=== PATIENT | male | born 1985 | race Caucasian/White ===

== ENCOUNTER 2016-11-05 16:09 | Emergency (ER) | payer OTHER ==
[2016-11-05 17:27] VITALS: BP 136/73
--- NOTE | 2016-11-05 21:41 | UC ---
Back Pain HPI - HPI Summary HPI Summary: PT WITH A H/O KIDNEY STONE P/W LOW BACK PAIN THAT STARTED THIS MORNING AT 8AM. PT ALSO NOTES DECREASED URINARY OUTPUT BUT, HAS NOT HAD ANYTHING TO DRINK TODAY BESIDES SODA(MONSTERS) AND CAFFEINATED TEA. PAIN IMPROVED SINCE THIS MORNING AFTER STRETCHING. PT DID HAVE AN INCIDENT 2 DAYS AGO WHEREIN HE SLIPPED WHILE WALKING ON ICE, DID NOT GO TO GROUND. - History of Current Complaint Chief Complaint: UCGU Stated Complaint: URINARY COMPLAINT-POSSIBLE STONE Time Seen by Provider: 11/05/16 17:02 Hx Obtained From: Patient, Family/Frickertron Checker Onset/Duration: Sudden Onset, Lasting Hours Timing: Constant Severity Initially: Moderate Severity Currently: Moderate Pain Intensity: 5 Pain Scale Used: 0-10 Numeric Back Pain: Is Discrete @ - LOW LEFT BACK Character: Dull, Aching, Throbbing Aggravating: Nothing Alleviating: Nothing - STRETCHING Associated Signs And Symptoms: Negative: Swelling, Redness, Bruising, Fever, Weakness, Numbness, Tingling, Abdominal Pain, Flank Pain, Bladder Incontinence, Bowel Incontinence, Pain with Weight Bearing - Risk Factors Cauda Equina Risk Factors: Negative - Allergies/Home Medications Allergies/Adverse Reactions: Allergies Allergy/AdvReac Type Severity Reaction Status Date / Time No Known Allergies Allergy Verified 11/05/16 17:27 Home Medications: Home Medications Pain And Muscle Reliever-Naproxen? 2 tab PO ONCE PRN 11/05/16 [History Confirmed 11/05/16] PMH/Surg Hx/FS Hx/Imm Hx Cardiovascular History Of: Reports: Cardiac Disorders - MVP - Surgical History Surgical History: Yes Surgery Procedure, Year, and Place: fracture right hand. stent place in L uterer, then removed. tonsillectomy - Family History Known Family History: Positive: Hypertension Negative: Cardiac Disease, Diabetes - Social History Occupation: Employed Full-time Lives: With Family Alcohol Use: Occasionally Substance Use Type: None Smoking Status (MU): Former Smoker Type: Cigarettes Amount Used/How Often: occ usage Review of Systems Constitutional: Negative Skin: Negative Eyes: Negative ENT: Negative Respiratory: Negative Cardiovascular: Negative Gastrointestinal: Negative Genitourinary: Other - DECREASED URINE OUTPUT Motor: Negative Neurovascular: Negative Musculoskeletal: Myalgia Neurological: Negative Psychological: Negative All Other Systems Reviewed And Are Negative: Yes Physical Exam Triage Information Reviewed: Yes Appearance: Well-Appearing, No Pain Distress, Well-Nourished Vital Signs: Initial Vital Signs Temp 98.3 F 11/05/16 17:22 Pulse 73 11/05/16 17:22 Resp 18 11/05/16 17:22 BP 136/73 11/05/16 17:22 Vital Signs Reviewed: Yes Eyes: Positive: Conjunctiva Clear. Negative: Discharge ENT: Positive: Hearing grossly normal. Negative: Muffled/hoarse voice Neck: Positive: Supple, Nontender Respiratory: Positive: Lungs clear, Normal breath sounds, No respiratory distress, No accessory muscle use Cardiovascular: Positive: RRR, No Murmur Abdomen Description: Positive: Nontender, Soft. Negative: CVA Tenderness (R), CVA Tenderness (L), Distended, Guarding, McBurney's Point Tenderness Bowel Sounds: Positive: Present Musculoskeletal Exam: Normal Neurological: Positive: Alert, Muscle Tone Normal Psychological: Positive: Age Appropriate Behavior Skin Exam: Normal Back Pain Course/Dx - Differential Dx/Diagnosis Differential Diagnosis/HQI/PQRI: Renal Colic, Strain, Sprain Provider Diagnoses: LOW BACK STRAIN Discharge - Discharge Plan Condition: Stable Disposition: HOME Patient Education Materials: Low Back Strain (ED), Lower Back Exercises (ED) Referrals: No Primary Care Phys,NOPCP [Primary Care Provider] - Additional Instructions: RIGHT NOW THERE IS NO BLOOD IN YOUR URINE. SO THERE THE LIKELIHOOD OF A KIDNEY STONE IS MINISCULE. IF HOWEVER, YOU DEVELOP INCREASED PAIN, PAIN WITH URINATION , FEVER, BLOOD IN YOUR URINE OR YOU ARE HAVING TROUBLE URINATING, YOU SHOULD RETURN HERE OR GO TO THE ED IMMEDIATELY. DRINK MORE WATER. CUT DOWN ON SODA. REMEMBER - LISTEN TO HER, SHE IS MOST CERTAINLY RIGHT. FOLLOW-UP CARE: You should establish with a private physician for follow-up care. If you are unable to get a timely appointment, or if you are worsening, call us or return for re-evaluation. An additional resource available to assist in finding the appropriate physician for your health care needs is the Physician Referral Center. You may contact them by calling [phone]. IF YOUR BACK PAIN DOES NOT CLEAR UP READILY, YOU MAY WANT TO REQUEST PHYSICAL THERAPY. AND YOU WOULD LIKELY BENEFIT FROM OSTEOPATHIC MANIPULATION. WE RECOMMEND THAT YOU FIND AN OSTEOPATHIC PHYSICIAN IN YOUR AREA WHO DOES LYMPHATIC, MYOFACIAL AND VISCERAL WORK
== END 2016-11-05 18:32 | disposition home or self-care (01) ==
LOC: UCCORT 16:09
DX: S39.012A Strain of muscle, fascia and tendon of lower back, initial encounter (principal); X58.XXXA Exposure to other specified factors, initial encounter; Y92.9 Unspecified place or not applicable; R39.9 Unspecified symptoms and signs involving the genitourinary system; Z87.442 Personal history of urinary calculi; Z87.891 Personal history of nicotine dependence
CPT/HCPCS: 87086; 99211; G0463

== ENCOUNTER 2017-02-20 19:37 | Emergency (ER) | payer OTHER ==
[2017-02-20 20:55] VITALS: BP 128/78
[2017-02-20] MEDS ORDERED: Penicillin VK TAB* 250 MG PO ONE (21:24)
[2017-02-20] MEDS ORDERED: HYDROcodone/ACETAMIN 5-325 MG* 1 TAB PO ONE (21:25)
--- NOTE | 2017-02-20 21:34 | UC ---
Dental HPI - HPI Summary HPI Summary: Patient awaiting a route canal, developed 2 abscesses on the left side of jaw. maxillary sinus pressure on the left patient has been taking ibuprofen round the clock - History of Current Complaint Chief Complaint: UCDentalProblem Stated Complaint: ORAL COMPLAINT Time Seen by Provider: 02/20/17 21:11 Hx Obtained From: Patient Onset/Duration: Sudden Onset, Lasting Days Severity: Moderate Related History: Previous Dental Care on Same Tooth, Swelling - Allergies/Home Medications Allergies/Adverse Reactions: Allergies Allergy/AdvReac Type Severity Reaction Status Date / Time No Known Allergies Allergy Verified 02/20/17 20:48 Home Medications: Home Medications Acetaminophen TAB* [Tylenol TAB*] 975 mg PO Q6H PRN 02/20/17 [History Confirmed 02/20/17] PMH/Surg Hx/FS Hx/Imm Hx Previously Healthy: Yes Cardiovascular History Of: Reports: Cardiac Disorders - MVP - Surgical History Surgical History: Yes Surgery Procedure, Year, and Place: fracture right hand. stent place in L [place], then removed. tonsillectomy - Family History Known Family History: Positive: Hypertension Negative: Cardiac Disease, Diabetes - Social History Alcohol Use: Weekly Substance Use Type: Marijuana Substance Use Comment - Amount & Last Used: 3 weeks ago Smoking Status (MU): Former Smoker Type: Cigarettes Amount Used/How Often: occ usage When Did the Patient Quit Smoking/Using Tobacco: 1 yr Review of Systems Constitutional: Negative Skin: Negative Eyes: Negative ENT: Dental Pain Respiratory: Negative Cardiovascular: Negative Gastrointestinal: Negative Genitourinary: Negative Motor: Negative Neurovascular: Negative Musculoskeletal: Negative Neurological: Headache Psychological: Negative All Other Systems Reviewed And Are Negative: Yes Physical Exam Triage Information Reviewed: Yes Appearance: Well-Nourished, Ill-Appearing, Pain Distress Vital Signs: Initial Vital Signs Temp 98.7 F 02/20/17 20:50 Pulse 71 02/20/17 20:50 Resp 16 02/20/17 20:50 BP 128/78 02/20/17 20:50 Pulse Ox 99 02/20/17 20:50 Vital Signs Reviewed: Yes Eye Exam: Normal Eyes: Positive: Conjunctiva Clear ENT Exam: Normal ENT: Positive: Pharyngeal erythema, TMs normal Dental Exam: Normal Neck exam: Normal Neck: Positive: Supple, Nontender, Enlarged Nodes @ - left cervical and subandibular Respiratory Exam: Normal Respiratory: Positive: Chest non-tender, Lungs clear, Normal breath sounds Cardiovascular Exam: Normal Cardiovascular: Positive: RRR, No Murmur, Pulses Normal Abdominal Exam: Normal Abdomen Description: Positive: Nontender, No Organomegaly, Soft Bowel Sounds: Positive: Present Musculoskeletal Exam: Normal Musculoskeletal: Positive: Strength Intact, ROM Intact, No Edema Neurological Exam: Normal Neurological: Positive: Alert Psychological Exam: Normal Skin Exam: Normal Dental Complaint Course/Dx - Course Course Of Treatment: hx obtained, exam performed, meds reviewed, treaed for 2 dental abcesses on left side of jaw. - Differential Dx/Diagnosis Differential Diagnosis/Dx: Dental Abscess, Dental Caries, Peridontic Disease, Tonsillitis Provider Diagnoses: dental abscess x2. dental caries. left maxillary sinus pressure Discharge - Discharge Plan Condition: Stable Disposition: HOME Prescriptions: HYDROcodone/ACETAMIN 5-325 MG* [[place] 5-325 TAB*] 1 tab PO Q6H PRN #8 tab MDD 4 tabs PRN Reason: Pain Penicillin VK TAB 500 MG(NF) [Penicillin VK 500 mg Tab(NF)] 500 mg PO QID #40 tab Patient Education Materials: Dental Abscess (ED) Referrals: JOYCE Eller [Primary Care Provider] - Additional Instructions: 1 take the medication as prescribed 2. follow up with your dentist for follow up treatment.
== END 2017-02-20 21:40 | disposition home or self-care (01) ==
LOC: UCCORT 19:37
DX: K04.7 Periapical abscess without sinus (principal); K02.9 Dental caries, unspecified; J32.0 Chronic maxillary sinusitis; R51 Headache; Z87.891 Personal history of nicotine dependence; I34.1 Nonrheumatic mitral (valve) prolapse
CPT/HCPCS: 99212; A9270-GY; G0463

== ENCOUNTER 2017-07-11 10:09 | Emergency (ER) | payer OTHER ==
[2017-07-11 10:33] VITALS: BP 133/66
--- NOTE | 2017-07-11 10:46 | UC ---
Throat Pain/Nasal Brda HPI - HPI Summary HPI Summary: patient has had sinus issues for the past week, on and off chills, threw up after large coughing fit this morning that ended up vomiting. - History of Current Complaint Chief Complaint: UCRespiratory Stated Complaint: VOMITING,SINUS Time Seen by Provider: 07/11/17 10:34 Hx Obtained From: Patient Hx From Patient Unobtainable Due To: Dementia Onset/Duration: Sudden Onset, Lasting Days Severity: Moderate Cough: Productive Associated Signs & Symptoms: Positive: Dysphagia, Wheezing, Sinus Discomfort, Nasal Discharge - Allergies/Home Medications Allergies/Adverse Reactions: Allergies Allergy/AdvReac Type Severity Reaction Status Date / Time No Known Allergies Allergy Verified 07/11/17 10:33 Home Medications: Home Medications Bismuth Subsalicylate [Pepto-Bismol Max Strength] 525 mg PO ONCE 07/11/17 [ History Confirmed 07/11/17] Nmqjmfbyfjeuz-Jususqgnkbc-Ac [Theraflu Cold & Cough] 1 yoan PO ONCE 07/11/17 [ History Confirmed 07/11/17] Pseudoephedrine HCL ER TAB* [Sudafed 12 Hour*] 120 mg PO BID 07/11/17 [History Confirmed 07/11/17] PMH/Surg Hx/FS Hx/Imm Hx Previously Healthy: Yes - Surgical History Surgical History: Yes Surgery Procedure, Year, and Place: fracture right hand. stent place in L [place], then removed. tonsillectomy - Family History Known Family History: Positive: Hypertension Negative: Cardiac Disease, Diabetes - Social History Alcohol Use: Occasionally Substance Use Type: Marijuana Substance Use Comment - Amount & Last Used: 1 week ago Smoking Status (MU): Former Smoker Type: Cigarettes Amount Used/How Often: occ usage When Did the Patient Quit Smoking/Using Tobacco: 1.5 - Immunization History Most Recent Influenza Vaccination: no Review of Systems Constitutional: Chills, Fatigue Skin: Negative Eyes: Negative ENT: Sore Throat, Ear Ache, Nasal Discharge, Sinus Congestion, Sinus Pain/ Tenderness Respiratory: Cough Cardiovascular: Negative Gastrointestinal: Negative Genitourinary: Negative Motor: Negative Neurovascular: Negative Musculoskeletal: Negative Neurological: Headache Psychological: Negative Is Patient Immunocompromised?: No All Other Systems Reviewed And Are Negative: Yes Physical Exam Triage Information Reviewed: Yes Appearance: Well-Nourished, Ill-Appearing, Pain Distress Vital Signs: Initial Vital Signs Temp 98.8 F 07/11/17 10:28 Pulse 68 07/11/17 10:28 Resp 18 07/11/17 10:28 BP 133/66 07/11/17 10:28 Pulse Ox 98 07/11/17 10:28 Vital Signs Reviewed: Yes Eye Exam: Normal ENT: Positive: Pharynx normal, Pharyngeal erythema, TMs normal Dental Exam: Normal Neck exam: Normal Respiratory Exam: Normal Cardiovascular Exam: Normal Cardiovascular: Positive: RRR, No Murmur, Pulses Normal Abdominal Exam: Normal Abdomen Description: Positive: Nontender, No Organomegaly, Soft Bowel Sounds: Positive: Present Musculoskeletal Exam: Normal Musculoskeletal: Positive: Strength Intact, ROM Intact, No Edema Neurological Exam: Normal Neurological: Positive: Alert, Muscle Tone Normal Psychological Exam: Normal Skin Exam: Normal Throat Pain/Nasal Course/Dx - Course Course Of Treatment: hx obtained, exam performed ,meds reviewed, treated for sinusitis and wheezing - Differential Dx/Diagnosis Differential Diagnosis/HQI/PQRI: Pharyngitis, Sinusitis, URI Provider Diagnoses: sinusitis. bronchospasm Discharge - Discharge Plan Condition: Stable Disposition: HOME Prescriptions: Albuterol HFA INHALER* [Ventolin HFA Inhaler*] 2 puff INH Q4H PRN #1 mdi PRN Reason: Cough Azithromyxin YOAN (NF) [Z-Yoan (Zithromax) 250 mg tabs #6] 2 tab PO .TODAY, THEN 1 DAILY #6 tab predniSONE TAB* [Deltasone TAB*] 40 mg PO DAILY #14 tab Patient Education Materials: Sinusitis (ED) Referrals: JOYCE Eller [Primary Care Provider] - Additional Instructions: 1. take the medication as prescribe.d 2. Increase fluid intake and get plenty of rest. 3. Follow up as needed if symptoms are not improving.
== END 2017-07-11 10:50 | disposition home or self-care (01) ==
LOC: UCCORT 10:09
DX: J32.9 Chronic sinusitis, unspecified (principal); J98.01 Acute bronchospasm; Z87.891 Personal history of nicotine dependence
CPT/HCPCS: 99212; G0463

== ENCOUNTER 2017-09-30 12:13 | Emergency (ER) | payer OTHER ==
[2017-09-30 14:30] VITALS: BP 135/69
--- NOTE | 2017-09-30 14:43 | UC ---
Respiratory Complaint HPI - HPI Summary HPI Summary: ONSET OF COUGH, CONGESTION, SCRATCHY THROAT AND FEVER 101 YESTERDAY. CALLED OUT OF WORK TODAY - REQUESTING A NOTE. - History of Current Complaint Chief Complaint: UCRespiratory Stated Complaint: COUGH,ST,SINUSES Time Seen by Provider: 09/30/17 14:32 Hx Obtained From: Patient Onset/Duration: Gradual Onset, Lasting Days, Still Present Timing: Constant Severity Initially: Moderate Severity Currently: Moderate Pain Intensity: 2 Pain Scale Used: 0-10 Numeric Character: Cough: Nonproductive Aggravating Factors: Nothing Alleviating Factors: Nothing Associated Signs And Symptoms: Positive: Fever, URI, Nasal Congestion - Allergies/Home Medications Allergies/Adverse Reactions: Allergies Allergy/AdvReac Type Severity Reaction Status Date / Time No Known Allergies Allergy Verified 09/30/17 14:31 PMH/Surg Hx/FS Hx/Imm Hx Previously Healthy: Yes Other Cardiovascular History: MVP - Surgical History Surgical History: Yes Surgery Procedure, Year, and Place: fracture right hand. stent place in L [place], then removed. tonsillectomy - Family History Known Family History: Positive: Hypertension Negative: Cardiac Disease, Diabetes - Social History Alcohol Use: Occasionally Substance Use Type: Marijuana Substance Use Comment - Amount & Last Used: 1 week ago Smoking Status (MU): Former Smoker Type: Cigarettes Amount Used/How Often: occ usage When Did the Patient Quit Smoking/Using Tobacco: 1.5 - Immunization History Most Recent Influenza Vaccination: no Review of Systems Constitutional: Fever, Fatigue ENT: Sore Throat, Nasal Discharge Respiratory: Cough Cardiovascular: Negative Gastrointestinal: Negative All Other Systems Reviewed And Are Negative: Yes Physical Exam Triage Information Reviewed: Yes Appearance: Well-Appearing, No Pain Distress, Well-Nourished Vital Signs: Initial Vital Signs Temp 98 F 09/30/17 14:27 Pulse 91 09/30/17 14:27 Resp 18 09/30/17 14:27 BP 135/69 09/30/17 14:27 Pulse Ox 98 09/30/17 14:27 Vital Signs Reviewed: Yes Eyes: Positive: Conjunctiva Clear ENT: Positive: Hearing grossly normal, Pharynx normal, TMs normal Neck: Positive: Supple, Nontender, No Lymphadenopathy Respiratory Exam: Normal Cardiovascular Exam: Normal Abdomen Description: Positive: Soft Musculoskeletal: Positive: No Edema Neurological: Positive: Alert Psychological: Positive: Age Appropriate Behavior Skin: Negative: rashes UC Diagnostic Evaluation - Laboratory O2 Sat by Pulse Oximetry: 98 Respiratory Course/Dx - Differential Dx/Diagnosis Provider Diagnoses: ACUTE URI Discharge - Discharge Plan Condition: Stable Disposition: HOME Patient Education Materials: Upper Respiratory Infection (ED) Forms: *Work Release Referrals: JOYCE Eller [Primary Care Provider] - 2 Weeks Additional Instructions: YOUR SYMPTOMS ARE LIKELY VIRALLY MEDIATED AND SHOULD RESOLVE ON THEIR OWN WITH TIME. REST, HYDRATE, OTC MEDS NEEDED. SEEK FOLLOW-UP IF YOU ARE NOT IMPROVING OVER THE NEXT 1-2 WEEKS.
== END 2017-09-30 14:52 | disposition home or self-care (01) ==
LOC: UCCORT 12:13
DX: J06.9 Acute upper respiratory infection, unspecified (principal); I34.1 Nonrheumatic mitral (valve) prolapse; F12.90 Cannabis use, unspecified, uncomplicated; Z72.0 Tobacco use
CPT/HCPCS: 99211; G0463

== ENCOUNTER 2018-04-11 08:50 | Emergency (ER) | payer OTHER ==
[2018-04-11 09:24] VITALS: BP 117/73
--- NOTE | 2018-04-11 09:54 | UC ---
Abdominal Pain Male HPI - HPI Summary HPI Summary: abdominal pain x 1 day + nausea and vomiting , + diarrhea no fever, no chills - History of Current Complaint Chief Complaint: UCGI Stated Complaint: DIARRHEA/VOMITING Time Seen by Provider: 04/11/18 09:28 Hx Obtained From: Patient Onset/Duration: Gradual Onset, Lasting Days - 1, Still Present Timing: Constant Severity Initially: Moderate Severity Currently: Moderate Pain Intensity: 1 Pain Scale Used: 0-10 Numeric Location: Diffuse Radiates: No Character: Cramping Aggravating Factor(s): Food Alleviating Factor(s): Rest Associated Signs And Symptoms: Positive: Nausea, Vomiting, Diarrhea. Negative: Fever, Cough, Chest Pain, Dizzy, Back Pain, Constipation, Blood in Stool, Urinary Symptoms, Decreased Appetite - Allergies/Home Medications Allergies/Adverse Reactions: Allergies Allergy/AdvReac Type Severity Reaction Status Date / Time No Known Allergies Allergy Verified 04/11/18 09:25 Home Medications: Home Medications Ibuprofen 400 mg PO DAILY PRN 04/11/18 [History Confirmed 04/11/18] PMH/Surg Hx/FS Hx/Imm Hx Previously Healthy: Yes - Surgical History Surgical History: Yes Surgery Procedure, Year, and Place: fracture right hand. stent place in L ute[place], then removed. tonsillectomy - Family History Known Family History: Positive: Hypertension Negative: Cardiac Disease, Diabetes - Social History Alcohol Use: Occasionally Substance Use Type: Marijuana Substance Use Comment - Amount & Last Used: yesterday Smoking Status (MU): Former Smoker Type: Cigarettes Amount Used/How Often: occ usage When Did the Patient Quit Smoking/Using Tobacco: 2015 - Immunization History Most Recent Influenza Vaccination: no Review of Systems Constitutional: Negative Skin: Negative Eyes: Negative ENT: Negative Respiratory: Negative Gastrointestinal: Abdominal Pain, Vomiting, Diarrhea, Nausea Is Patient Immunocompromised?: No All Other Systems Reviewed And Are Negative: Yes Physical Exam Triage Information Reviewed: Yes Appearance: Well-Appearing, No Pain Distress, Well-Nourished Vital Signs: Initial Vital Signs Temp 97.8 F 04/11/18 09:09 Pulse 65 04/11/18 09:09 Resp 16 04/11/18 09:09 BP 117/73 04/11/18 09:09 Pulse Ox 100 04/11/18 09:09 Vital Signs Reviewed: Yes Eye Exam: Normal Eyes: Positive: Conjunctiva Clear ENT: Positive: Normal ENT inspection, Hearing grossly normal, Pharynx normal Neck: Positive: Supple, Nontender, No Lymphadenopathy Respiratory: Positive: Chest non-tender, Lungs clear, Normal breath sounds Cardiovascular: Positive: RRR, No Murmur, Pulses Normal Abdomen Description: Positive: Nontender, Soft. Negative: CVA Tenderness (R), CVA Tenderness (L), Distended, Guarding Bowel Sounds: Positive: Present Abd Pain Male Course/Dx - Differential Dx/Clinical Impression Provider Diagnoses: gastroenteritis Discharge - Sign-Out/Discharge Documenting (check all that apply): Discharge/Admit/Transfer - Discharge Plan Condition: Stable Disposition: HOME Patient Education Materials: Gastroenteritis (ED) Forms: *Work Release Referrals: Non Staff,Doctor [Primary Care Provider] - If Needed - Billing Disposition and Condition Condition: STABLE Disposition: Home
== END 2018-04-11 09:42 | disposition home or self-care (01) ==
LOC: UCCORT 08:50
DX: K52.9 Noninfective gastroenteritis and colitis, unspecified (principal); Z87.891 Personal history of nicotine dependence
CPT/HCPCS: 99211; G0463

== ENCOUNTER 2019-03-13 08:11 | Emergency (ER) | payer OTHER ==
[2019-03-13 08:26] VITALS: BP 129/79
--- NOTE | 2019-03-13 09:19 | UC ---
Abdominal Pain Male HPI - HPI Summary HPI Summary: nausea and vomiting x 1 day abdominal cramping and diarrhea , no fever, no chills cold symptoms with runny nose, cough - History of Current Complaint Chief Complaint: UCGeneralIllness Stated Complaint: NAUSEA,CONGESTION,FEVER Time Seen by Provider: 03/13/19 08:26 Hx Obtained From: Patient Onset/Duration: Gradual Onset, Lasting Days - 1, Still Present Timing: Constant Severity Initially: Mild Severity Currently: Mild Pain Intensity: 0 Pain Scale Used: 0-10 Numeric Location: Diffuse Character: Cramping Aggravating Factor(s): Food Alleviating Factor(s): Nothing Associated Signs And Symptoms: Positive: Nausea, Vomiting, Diarrhea. Negative: Fever, Cough, Back Pain, Constipation, Blood in Stool, Urinary Symptoms, Decreased Appetite, Penile Discharge - Allergies/Home Medications Allergies/Adverse Reactions: Allergies Allergy/AdvReac Type Severity Reaction Status Date / Time No Known Allergies Allergy Verified 03/13/19 08:26 Home Medications: Home Medications NK [No Home Medications Reported] 03/13/19 [History Confirmed 03/13/19] PMH/Surg Hx/FS Hx/Imm Hx Cardiovascular History: Cardiac Disease - Surgical History Surgical History: Yes Surgery Procedure, Year, and Place: fracture right hand. stent place in L uterer, then removed. tonsillectomy - Family History Known Family History: Positive: Hypertension Negative: Cardiac Disease, Diabetes - Social History Alcohol Use: Occasionally Substance Use Type: Marijuana Substance Use Comment - Amount & Last Used: Last used Tuesday Smoking Status (MU): Former Smoker Type: Cigarettes Amount Used/How Often: occ usage When Did the Patient Quit Smoking/Using Tobacco: 2014 - Immunization History Most Recent Influenza Vaccination: no Review of Systems All Other Systems Reviewed And Are Negative: Yes Constitutional: Positive: Negative Skin: Positive: Negative Eyes: Positive: Negative ENT: Positive: Nasal Discharge Respiratory: Positive: Cough Cardiovascular: Positive: Negative Gastrointestinal: Positive: Abdominal Pain, Vomiting, Diarrhea, Nausea Genitourinary: Positive: Negative Is Patient Immunocompromised?: No Physical Exam Vital Signs: Initial Vital Signs Temp 98.1 F 03/13/19 08:20 Pulse 67 03/13/19 08:20 Resp 16 03/13/19 08:20 BP 129/79 03/13/19 08:20 Pulse Ox 100 03/13/19 08:20 Abd Pain Male Course/Dx - Differential Dx/Clinical Impression Provider Diagnosis: Viral illness Discharge - Sign-Out/Discharge Documenting (check all that apply): Patient Departure All imaging exams completed and their final reports reviewed: No Studies - Discharge Plan Condition: Stable Disposition: HOME Patient Education Materials: Viral Syndrome (ED) Forms: *Work Release Referrals: No Primary Care Phys,NOPCP [Primary Care Provider] - If Needed - Billing Disposition and Condition Condition: STABLE Disposition: Home
== END 2019-03-13 08:44 | disposition home or self-care (01) ==
LOC: UCCORT 08:11
DX: B34.9 Viral infection, unspecified (principal); R19.7 Diarrhea, unspecified; R10.9 Unspecified abdominal pain; R11.2 Nausea with vomiting, unspecified; Z87.891 Personal history of nicotine dependence
CPT/HCPCS: 99211; G0463

== ENCOUNTER 2019-05-22 07:52 | Emergency (ER) | payer OTHER ==
[2019-05-22 08:15] VITALS: BP 122/68
--- NOTE | 2019-05-22 08:28 | UC ---
Throat Pain/Nasal Brad HPI - HPI Summary HPI Summary: nasal congestion x 2 day dry cough , fever, chills , mild sore throat and mild body aches feeling better, today no n/v/d/c no urinary sx right wrist injury x 1 days , s/p fall on his right wrist, pain and swelling distal wrist, - History of Current Complaint Chief Complaint: UCGeneralIllness Stated Complaint: COUGH CONGESTION Time Seen by Provider: 05/22/19 08:17 Hx Obtained From: Patient Onset/Duration: Gradual Onset, Lasting Days - 1, Still Present Severity: Moderate Pain Intensity: 3 Cough: Nonproductive Associated Signs & Symptoms: Positive: Nasal Discharge, Fever. Negative: Dysphagia, FB Sensation, Drooling, Wheezing, Hoarseness, Sinus Discomfort, Rash - Allergies/Home Medications Allergies/Adverse Reactions: Allergies Allergy/AdvReac Type Severity Reaction Status Date / Time No Known Allergies Allergy Verified 05/22/19 08:15 Home Medications: Home Medications Oxymetazoline HCl [Nasal Decongestant] 30 ml NS 05/22/19 [History] Pseudoephedrine TAB* [Sudafed TAB*] 30 mg PO Q6H PRN 05/22/19 [History Confirmed 05/22/19] PMH/Surg Hx/FS Hx/Imm Hx Previously Healthy: Yes - Surgical History Surgical History: Yes Surgery Procedure, Year, and Place: fracture right hand. stent place in [place], then removed. tonsillectomy - Family History Known Family History: Positive: Hypertension Negative: Cardiac Disease, Diabetes - Social History Alcohol Use: Rare Substance Use Type: Marijuana Substance Use Comment - Amount & Last Used: Last used Tuesday Smoking Status (MU): Former Smoker Type: Cigarettes Amount Used/How Often: occ usage When Did the Patient Quit Smoking/Using Tobacco: 2014 - Immunization History Most Recent Influenza Vaccination: no Review of Systems All Other Systems Reviewed And Are Negative: Yes Constitutional: Positive: Fever, Chills, Fatigue Skin: Positive: Negative Eyes: Positive: Negative ENT: Positive: Sore Throat, Nasal Discharge Respiratory: Positive: Cough Cardiovascular: Positive: Negative Is Patient Immunocompromised?: No Physical Exam Triage Information Reviewed: Yes Appearance: Well-Appearing, No Pain Distress, Well-Nourished Vital Signs: Initial Vital Signs Temp 98.2 F 05/22/19 08:09 Pulse 65 05/22/19 08:09 Resp 18 05/22/19 08:09 BP 122/68 05/22/19 08:09 Pulse Ox 100 05/22/19 08:09 Vital Signs Reviewed: Yes Eye Exam: Normal Eyes: Positive: Conjunctiva Clear ENT: Positive: Normal ENT inspection, Hearing grossly normal, Pharynx normal, Nasal drainage, TMs normal. Negative: TM bulging, TM dull, TM red Neck: Positive: Supple, Nontender, No Lymphadenopathy Respiratory: Positive: Chest non-tender, Lungs clear, Normal breath sounds Cardiovascular: Positive: RRR, No Murmur, Pulses Normal Musculoskeletal: Positive: Other: - right wrist: + swelling distal wrist, + tenderness, bruising goot ROM , normal strength Neurological Exam: Normal Throat Pain/Nasal Course/Dx - Differential Dx/Diagnosis Provider Diagnosis: URI (upper respiratory infection), Contusion of right wrist Discharge - Sign-Out/Discharge Documenting (check all that apply): Patient Departure All imaging exams completed and their final reports reviewed: No Studies - Discharge Plan Condition: Stable Disposition: HOME Patient Education Materials: Upper Respiratory Infection (DC), Contusion in Adults (ED) Forms: *Work Release Referrals: No Primary Care Phys,NOPCP [Primary Care Provider] - If Needed - Billing Disposition and Condition Condition: STABLE Disposition: Home
== END 2019-05-22 08:28 | disposition home or self-care (01) ==
LOC: UCCORT 07:52
DX: J06.9 Acute upper respiratory infection, unspecified (principal); S60.211A Contusion of right wrist, initial encounter; W19.XXXA Unspecified fall, initial encounter; Y92.9 Unspecified place or not applicable; Z87.891 Personal history of nicotine dependence
CPT/HCPCS: 99212; G0463

== ENCOUNTER 2019-07-13 10:10 | Emergency (ER) | payer OTHER ==
[2019-07-13 10:37] VITALS: BP 136/78
--- NOTE | 2019-07-13 10:45 | UC ---
Lower Extremity/Ankle HPI - HPI Summary HPI Summary: 33-year-old male who started having pain over the past day in the base of his right great toe. His job requires him to walk 10-15 miles a day. He wears steel toed boots. He has no specific known injury. - History of Current Complaint Chief Complaint: UCLowerExtremity Stated Complaint: RT FOOT PAIN Time Seen by Provider: 07/13/19 10:37 Hx Obtained From: Patient Onset/Duration: Gradual Onset Severity Initially: Mild Severity Currently: Moderate Pain Intensity: 8 Aggravating Factor(s): Ambulation Alleviating Factor(s): Rest Able to Bear Weight: Yes - Allergies/Home Medications Allergies/Adverse Reactions: Allergies Allergy/AdvReac Type Severity Reaction Status Date / Time No Known Allergies Allergy Verified 07/13/19 10:33 Home Medications: Home Medications NK [No Home Medications Reported] 07/13/19 [History Confirmed 07/13/19] PMH/Surg Hx/FS Hx/Imm Hx Previously Healthy: Yes - Surgical History Surgical History: Yes Surgery Procedure, Year, and Place: fracture right hand. stent place in [place], then removed. tonsillectomy - Family History Known Family History: Positive: Hypertension Negative: Cardiac Disease, Diabetes - Social History Occupation: Employed Full-time Lives: With Family Alcohol Use: Rare Substance Use Type: Marijuana Substance Use Comment - Amount & Last Used: Daily Smoking Status (MU): Former Smoker Type: Cigarettes Amount Used/How Often: occ usage When Did the Patient Quit Smoking/Using Tobacco: 2014 - Immunization History Most Recent Influenza Vaccination: no Review of Systems All Other Systems Reviewed And Are Negative: Yes Musculoskeletal: Positive: Other: - Pain at the base of the right great toe. No history of gout Is Patient Immunocompromised?: No Physical Exam Triage Information Reviewed: Yes Appearance: Well-Appearing, No Pain Distress, Well-Nourished Vital Signs: Initial Vital Signs Temp 98.2 F 07/13/19 10:30 Pulse 60 07/13/19 10:30 Resp 16 07/13/19 10:30 BP 136/78 07/13/19 10:30 Pulse Ox 100 07/13/19 10:30 Vital Signs Reviewed: Yes Musculoskeletal: Positive: Strength Intact, ROM Intact, Other: - Pain on palpation at the base of the right great toe. No bruising, erythema, deformity or swelling is noted. Full range of motion. Achilles is intact. Neurological: Positive: Alert, Muscle Tone Normal Psychological Exam: Normal Skin Exam: Normal Lower Extremity Course/Dx - Course Course Of Treatment: Right Foot x-ray:INDICATION: Right foot injury. TECHNIQUE: 3 views of the right foot were obtained. FINDINGS: The bones are in normal alignment. No fracture is seen. Joint spaces appear maintained. IMPRESSION: NO EVIDENCE FOR FRACTURE. - Differential Dx/Diagnosis Provider Diagnosis: Right foot sprain Discharge ED - Sign-Out/Discharge Documenting (check all that apply): Patient Departure All imaging exams completed and their final reports reviewed: Yes - Discharge Plan Condition: Good Disposition: HOME Patient Education Materials: Foot Sprain (ED) Forms: *Work Release Referrals: No Primary Care Phys,NOPCP [Primary Care Provider] - Regulo Ortega MD [Medical Doctor] - Additional Instructions: Elevate and apply heat to the sore area over the next day or 2. Follow-up with the orthopedist if no improvement by Tuesday. May take Tylenol every 4 hours for pain and alternate with Motrin every 8 hours. - Billing Disposition and Condition Condition: GOOD Disposition: Home
== END 2019-07-13 11:06 | disposition home or self-care (01) ==
LOC: UCCORT 10:10
DX: S93.601A Unspecified sprain of right foot, initial encounter (principal); X58.XXXA Exposure to other specified factors, initial encounter; Y92.9 Unspecified place or not applicable; Z87.891 Personal history of nicotine dependence
CPT/HCPCS: 99211; G0463

== ENCOUNTER 2019-08-16 10:20 | Emergency (ER) | payer OTHER ==
[2019-08-16 11:57] VITALS: BP 138/78
--- NOTE | 2019-08-16 12:12 | ED ---
Throat Pain/Nasal Congestion - HPI Summary HPI Summary: 33 yr old male with the complaint of Runny nose post nasal drip, coughing , sinus pressure. He has been ill for five days. He feels like he has a sinus infection. His symptoms are moderate. - History of Current Complaint Chief Complaint: UCRespiratory Time Seen by Provider: 08/16/19 11:58 - Allergies/Home Medications Allergies/Adverse Reactions: Allergies Allergy/AdvReac Type Severity Reaction Status Date / Time No Known Allergies Allergy Verified 08/16/19 11:52 Home Medications: Home Medications D-Methorphan/PE/Acetaminophen [Daytime Cold Multi-Symp Gelcap] 2 each PO ONCE PRN 08/16/19 [History Confirmed 08/16/19] Oxymetazoline 0.05% NASAL SPR* [Afrin 0.05% NASAL SPRAY*] 1 spray NASAL Q12H PRN 08/16/19 [History Confirmed 08/16/19] PMH/Surg Hx/FS Hx/Imm Hx Endocrine/Hematology History: Denies: Hx Diabetes, Hx Thyroid Disease Cardiovascular History: Denies: Hx Hypertension Respiratory History: Denies: Hx Asthma, Hx Chronic Obstructive Pulmonary Disease (COPD) GI History: Denies: Hx Ulcer - Surgical History Surgery Procedure, Year, and Place: fracture right hand. stent place in L [place], then removed. tonsillectomy Infectious Disease History: No Infectious Disease History: Denies: Hx Hepatitis, Hx Human Immunodeficiency Virus (HIV), Traveled Outside the [place] in Last 30 Days - Family History Known Family History: Positive: Hypertension Negative: Cardiac Disease, Diabetes - Social History Occupation: Employed Full-time Alcohol Use: Rare Substance Use Type: Reports: Marijuana Substance Use Comment - Amount & Last Used: Daily Smoking Status (MU): Former Smoker Type: Cigarettes Amount Used/How Often: occ usage Review of Systems Constitutional: Negative Positive: Other - sinus pain, All Other Systems Reviewed And Are Negative: Yes Physical Exam Triage Information Reviewed: Yes Vital Signs On Initial Exam: Initial Vitals Temp Pulse Resp BP Pulse Ox 98.1 F 68 14 138/78 100 08/16/19 11:54 08/16/19 11:54 08/16/19 11:54 08/16/19 11:54 08/16/19 11:54 Vital Signs Reviewed: Yes Appearance: Positive: Well-Appearing, No Pain Distress Skin: Positive: Warm, Skin Color Reflects Adequate Perfusion Head/Face: Positive: Normal Head/Face Inspection Eyes: Positive: EOMI, HARSH ENT: Positive: Nasal congestion, Nasal drainage, TM red - left, Sinus tenderness Neck: Positive: Nontender Respiratory/Lung Sounds: Positive: Clear to Auscultation, Breath Sounds Present Cardiovascular: Positive: RRR. Negative: Murmur Abdomen Description: Negative: Distended Musculoskeletal: Positive: Strength/ROM Intact Neurological: Positive: Sensory/Motor Intact, Alert, Oriented to Person Place, Time, CN Intact II-III Psychiatric: Positive: Normal - Brittany Coma Scale Best Eye Response: 4 - Spontaneous Best Motor Response: 6 - Obeys Commands Best Verbal Response: 5 - Oriented Coma Scale Total: 15 Diagnostics - Vital Signs Vital Signs Temp Pulse Resp BP Pulse Ox 08/16/19 11:54 98.1 F 68 14 138/78 100 - Laboratory Lab Statement: Any lab studies that have been ordered have been reviewed, and results considered in the medical decision making process. EENT Course/Dx - Course Course Of Treatment: 33 yr old with sinusitis/ left OM.. DC on augmentin - Diagnoses Provider Diagnoses: Left otitis media, Sinusitis Discharge ED - Sign-Out/Discharge Documenting (check all that apply): Patient Departure All imaging exams completed and their final reports reviewed: No Studies - Discharge Plan Condition: Good Disposition: HOME Prescriptions: Amoxicillin/Clavulanate TAB* [Augmentin TAB 875*] 875 mg PO BID #20 tab Patient Education Materials: Sinusitis (ED) Forms: *Work Release Referrals: No Primary Care Phys,NOPCP [Primary Care Provider] - [facility] [Outside] - Billing Disposition and Condition Condition: GOOD Disposition: Home
== END 2019-08-16 12:11 | disposition home or self-care (01) ==
LOC: UCCORT 10:20
DX: H66.92 Otitis media, unspecified, left ear (principal); J32.9 Chronic sinusitis, unspecified; Z87.891 Personal history of nicotine dependence
CPT/HCPCS: 99212; G0463

== ENCOUNTER 2019-12-11 09:51 | Emergency (ER) | payer OTHER | END 2019-12-11 10:51 | disposition left against medical advice (07) | LOC: UCCORT 09:51 | DX: Z53.21 Procedure and treatment not carried out due to patient leaving prior to being seen by health care provider (principal) ==